=== PATIENT | female | born 1945 | race Caucasian/White ===

== ENCOUNTER → 2017-06-29 | Outpatient (CLI) | payer MEDICARE ==
[~2017-06-29] MED LIST: FENOGLIDE40 MG; HCTZ 25MG TAB25 MG; TOPROL XL 25MG25 MG
== END ==
LOC: MC.RAD 09:36
DX: Z12.31 Encounter for screening mammogram for malignant neoplasm of breast (principal)

== ENCOUNTER → 2018-07-17 | Outpatient (CLI) | payer MEDICARE | LOC: MC.RAD 09:29 | DX: Z12.31 Encounter for screening mammogram for malignant neoplasm of breast (principal) ==

== ENCOUNTER → 2019-08-22 | Outpatient (CLI) | payer MEDICARE | LOC: MC.RAD 09:37 | DX: Z12.31 Encounter for screening mammogram for malignant neoplasm of breast (principal) ==

== ENCOUNTER → 2020-08-25 | Outpatient (CLI) | payer MEDICARE | LOC: MC.RAD 09:25 | DX: Z12.31 Encounter for screening mammogram for malignant neoplasm of breast (principal) ==

== ENCOUNTER → 2021-10-05 | Outpatient (CLI) | payer MEDICARE | LOC: MC.RAD 08:45 | DX: Z12.31 Encounter for screening mammogram for malignant neoplasm of breast (principal) ==

== ENCOUNTER 2022-07-27 11:11 | Inpatient (IN) | payer MEDICARE ==
[~2022-07-27] VITALS: Ht 162.6 cm; Wt 53.8 kg
[2022-07-27] MEDS ORDERED: ZESTRIL 20MG TA20 MG PO (11:56)
[2022-07-27] MEDS ORDERED: PRINZIDE 25 MG-1 TAB PO ×2 (11:58)
[2022-07-27 12:00] VITALS: BP 205/86; PULSE 72
[2022-07-27] MEDS ORDERED: CALCIUM 600MG+D1 TAB PO (12:00)
--- NOTE | 2022-07-27 12:41 | NUR ---
PT ADMITTED TO MEDICAL UNIT. ADMISSION INTAKE AND ASSESSMENT COMPLETED. MED REC UPDATED. PT ORIENTED TO ROOM. CALL LIGHT WITHIN REACH. PT HAS ELEVATED B/P, PROVIDER CONTACTED, MEDICATIONS GIVEN PER eMAR. CONTINUING TO MONITOR.
[2022-07-27 13:02] LABS: BASO % 0.5 % (0.0-2.0); EOS # 0.1 K/mm3 (0.0-0.7); EOS % 1.6 % (0.0-4.0); GRAN # 2.3 K/mm3 (1.4-6.5); HEMATOCRIT 24.2 % (37.0-47.0); HEMOGLOBIN 8.1 g/dl (12.5-16.0); LYMPH # 1.5 K/mm3 (1.2-3.4); MEAN CELL VOLUME 101 fl (80.0-100.0); MEAN CORPUSCULAR HEMOGLOBIN 34 pg (27-31); MEAN CORPUSCULAR HGB CONC 34 g/dl (33.0-37.0); MEAN PLATELET VOLUME 10.9 fl (7.4-10.4); MONO # 0.4 K/mm3 (0.1-0.6); MONO % 8.7 % (1.7-9.3); PLATELET COUNT 237 K/mm3 (130-400); RED BLOOD COUNT 2.39 M/mm3 (4.10-5.30); REDCELL DISTRIBUTION WIDTH-CV 12.9 % (11.5-14.5)
[2022-07-27 13:12] LABS: PROTHROMBIN TIME 11.8 SECONDS (9.7-12.8)
[2022-07-27 13:15] LABS: PARTIAL THROMBOPLASTIN TIME 32.8 SECONDS (26.0-37.0)
[2022-07-27 13:16] VITALS: BP 172/76
[2022-07-27 13:22] LABS: ALBUMIN 4.3 gm/dL (3.4-4.8); BILIRUBIN,TOTAL 0.4 mg/dL (0.2-1.2); CALCIUM 10.6 mg/dL (8.4-10.2); CREATININE, serum 6.24 mg/dL (0.57-1.11); POTASSIUM 4.2 mmol/L (3.5-4.5); TOTAL PROTEIN 8.1 gm/dL (6.2-8.1)
[2022-07-27 13:25] LABS: ERYTHROCYTE SEDIMENTATION RATE 120 mm/hr (0-30)
[2022-07-27 13:32] LABS: MUCOUS Present (NOT PRESENT); SQUAMOUS EPITHELIAL None Seen /hpf (0-10); URINE BACTERIA None Seen /hpf (NONE SEEN); URINE RBC None Seen /hpf (0-2); URINE WBC 0-2 /hpf (0-2)
[2022-07-27 13:33] LABS: PH 5.5 (5.0-8.5); URINE APPEARANCE Clear (CLEAR/HAZY); URINE COLOR Yellow (YELLOW); URINE GLUCOSE Negative (NEGATIVE); URINE KETONE Negative (NEGATIVE); URINE NITRATE Negative (NEGATIVE); URINE PROTEIN(semi-quant) 1+ (NEGATIVE); URINE UROBILINOGEN 0.2 E.U/dL (0.2-1.0)
[2022-07-27 13:34] LABS: COLLECTION METHOD CLEAN CATCH; URINE BLOOD 1+ (NEGATIVE)
[2022-07-27 16:04] VITALS: BP 154/76; PULSE 53; TEMP 98.7
[2022-07-27 21:08] VITALS: BP 149/67; PULSE 61; TEMP 98.8
[2022-07-27 23:24] VITALS: BP 148/65; PULSE 73; TEMP 98.7
[2022-07-28] VITALS (32 sets, daily range): BP systolic 83–183; BP diastolic 41–84; PULSE 55–85; TEMP 98–98.9
--- NOTE | 2022-07-28 06:23 | NUR ---
pt up ad ijeoma in room, 24 hour urine collection in progress, NPO since midnight, prn hydralazine given @0120 for elevated BP, down to 126/58 @0400.
[2022-07-28 07:40] LABS: ALBUMIN 3.8 gm/dL (3.4-4.8); CREATININE, serum 6.18 mg/dL (0.57-1.11); PHOSPHOROUS 6.2 mg/dL (2.3-4.7); POTASSIUM 4.1 mmol/L (3.5-4.5)
--- NOTE | 2022-07-28 09:15 | NUR ---
Prior to administrating 0900 medications colaborated with primary nurse Hope RN and instructed to give medications.
[2022-07-28 10:15] LABS: BASO % 0.5 % (0.0-2.0); EOS # 0.1 K/mm3 (0.0-0.7); GRAN # 1.5 K/mm3 (1.4-6.5); GRAN % 39.6 % (42.2-75.2); LYMPH # 1.8 K/mm3 (1.2-3.4); LYMPH % 48.5 % (20.0-51.0); MEAN CELL VOLUME 105 fl (80.0-100.0); MEAN CORPUSCULAR HGB CONC 32 g/dl (33.0-37.0); MEAN PLATELET VOLUME 11.3 fl (7.4-10.4); MONO # 0.3 K/mm3 (0.1-0.6); MONO % 8.1 % (1.7-9.3); PLATELET COUNT 220 K/mm3 (130-400); RED BLOOD COUNT 2.26 M/mm3 (4.10-5.30)
[2022-07-28 10:19] LABS: HEMATOCRIT 23.8 % (37.0-47.0); HEMOGLOBIN 7.6 g/dl (12.5-16.0); MEAN CORPUSCULAR HEMOGLOBIN 34 pg (27-31)
--- NOTE | 2022-07-28 10:26 | NUR ---
Initial visit; Patient and thanked Motor Vehicle Inspector for looking in on her and introducing herself and offering God's blessings.
--- NOTE | 2022-07-28 11:50 | NUR ---
LATE ENTRY: PT WAS BROUGHT BACK TO ROOM 356. REPORT WAS GIVEN TO OLGA BAEZ. PT HAS NO PAIN OR DIFFICULTIES THAT SHE STATES WHEN QUESTONED ABOUT PAIN. CALL LIGHT IN REACH.
--- NOTE | 2022-07-28 13:49 | NUR ---
Primary nurse was assisted with [phone] patient care by [employer] [facility] student Marly De Paz and [facility] [facility] instructor Cynthia SANTA RN.
[2022-07-28 13:55] LABS: HEMATOCRIT 24.3 % (37.0-47.0); HEMOGLOBIN 8.1 g/dl (12.5-16.0)
--- NOTE | 2022-07-28 18:47 | NUR ---
PT ALERT AND ORIENTED WITH VITALS STABLE ON ROOM AIR. PT DENIES PAIN. PT SITTING UP IN BED EATING DINNER. CALL LIGHT WITHIN REACH. NO FURTHER NEEDS IDENTIFIED.
[2022-07-28 23:06] LABS: URINE HOURS (UPEP) 24 (())
[2022-07-29] VITALS (13 sets, daily range): BP systolic 111–179; BP diastolic 53–80; PULSE 58–68; TEMP 97.1–98.6
--- NOTE | 2022-07-29 05:00 | NUR ---
ASSESSMENT COMPLETE FOR WARDSPERSON. PT RESTING IN BED. PT DENIED GENERAL PAIN, CHEST PAIN, PALPITATIONS, N,V,D, SOB OR DIZZINESS. PT HAD A PRETTY UNEVENTFUL NIGHT. PT EXPRESSED NO ADDITIONAL NEEDS AT THIS TIME. CALL LIGHT WITHIN REACH.
[2022-07-29 06:56] LABS: ALBUMIN 3.6 gm/dL (3.4-4.8); CALCIUM 9.6 mg/dL (8.4-10.2); CREATININE, serum 6.4 mg/dL (0.57-1.11); PHOSPHOROUS 7.1 mg/dL (2.3-4.7); POTASSIUM 4.4 mmol/L (3.5-4.5)
[2022-07-29 08:46] LABS: BASO % 0.5 % (0.0-2.0); EOS # 0.1 K/mm3 (0.0-0.7); EOS % 2.8 % (0.0-4.0); GRAN # 2.1 K/mm3 (1.4-6.5); GRAN % 48.6 % (42.2-75.2); LYMPH # 1.7 K/mm3 (1.2-3.4); MEAN CELL VOLUME 102 fl (80.0-100.0); MEAN CORPUSCULAR HGB CONC 33 g/dl (33.0-37.0); MEAN PLATELET VOLUME 11.4 fl (7.4-10.4); MONO # 0.3 K/mm3 (0.1-0.6); MONO % 7.9 % (1.7-9.3); PLATELET COUNT 199 K/mm3 (130-400); RED BLOOD COUNT 2.08 M/mm3 (4.10-5.30); REDCELL DISTRIBUTION WIDTH-CV 12.9 % (11.5-14.5)
[2022-07-29 08:50] LABS: HEMATOCRIT 21.3 % (37.0-47.0); MEAN CORPUSCULAR HEMOGLOBIN 34 pg (27-31)
[2022-07-29 09:22] LABS: KAPPA FREE LIGHT CHAIN-SERUM 10908.28 mg/L (()); KAPPA LAMBDA RATIO 1368.67 ratio (()); LAMDA FREE LIGHT CHAIN SERUM 7.97 mg/L (())
--- NOTE | 2022-07-29 10:10 | NUR ---
Director Music met with patient to discuss discharge planning. Patient lives in [place] with her , Yifan (ph#[phone]) who is at bedside. Patient sees Dr. Arteaga for primary care and stated her preferred pharmacy is the cheapest one. Patient utilizes [facility] so she calls around to seek out the most affordable prices. Patient does not use any DME and is independent with ADLS. Patient stated she has DPOA-HC completed which designates her . Patient plans to return home at time of discharge. Discharge Plan: Home
--- NOTE | 2022-07-29 10:47 | NUR ---
PT CHATTING WITH FAMILY THIS AM. SHIFT ASSESSMENT PERFORMED, WNL. NO FURTHER NEEDS AT THIS TIME, CALL LIGHT WITHIN REACH.
--- NOTE | 2022-07-29 13:51 | NUR ---
Primary nurse was assisted with [phone] patient care by [employer] student Marly De Paz and [facility] instructor Cynthia SANTA RN.
[2022-07-29] MEDS ORDERED: APRESOLINE 25MG25 MG PO (14:29)
[2022-07-29] MEDS ORDERED: ZESTRIL 20MG TA20 MG PO (14:30)
[2022-07-29] MEDS ORDERED: RENVELA800 MG PO (14:31)
[2022-07-29 16:03] LABS: HEMATOCRIT 29.1 % (37.0-47.0)
[2022-07-29 16:04] LABS: HEMOGLOBIN 9.8 g/dl (12.5-16.0)
--- NOTE | 2022-07-29 17:00 | NUR ---
DISCHARGE INSTRUCTIONS GIVEN, FAMILY AT BEDSIDE, ALL QUESTIONS ANSWERED. IV REMOVED BY KATLYN GOMEZ. PT ESCORTED OFF OF UNIT BY [facility] STAFF.
[2022-07-30 15:20] LABS: URINE PROTEIN 24HR (UPEP) 2030 mg/24 h (<229)
[2022-08-01 15:16] LABS: A/G RATIO (PEP) 1.09 (())
== END 2022-07-29 17:38 | disposition home or self-care (01) | DRG 841 ==
LOC: MEDICAL 11:11
PROVIDERS: Registered Nurse; ADMIT Internal Medicine Nephrology
PROC: 0TB03ZX Excision of Right Kidney, Percutaneous Approach, Diagnostic (ICD-10-PCS; principal; 2022-07-28)
DX: C90.00 Multiple myeloma not having achieved remission (principal); N17.9 Acute kidney failure, unspecified; D64.9 Anemia, unspecified; E78.5 Hyperlipidemia, unspecified; Z96.652 Presence of left artificial knee joint; D72.819 Decreased white blood cell count, unspecified; I16.0 Hypertensive urgency; E83.52 Hypercalcemia; I12.9 Hypertensive chronic kidney disease with stage 1 through stage 4 chronic kidney disease, or unspecified chronic kidney disease; N18.9 Chronic kidney disease, unspecified; E83.39 Other disorders of phosphorus metabolism; E79.0 Hyperuricemia without signs of inflammatory arthritis and tophaceous disease; Z23 Encounter for immunization
CPT/HCPCS: J2597; J7040; P9016

== ENCOUNTER 2022-10-12 12:15 | Day surgery (SDC) | payer MEDICARE ==
[~2022-10-12] VITALS: Ht 162.6 cm; Wt 53.6 kg
[~2022-10-12 12:15] MED LIST changes: +APRESOLINE 25MG25 MG PO; +CALCIUM 600MG+D1 TAB PO; +LOFIBRA160 MG PO; +NEPHROCAP PO; +NORVASC2.5 MG PO; +PRINZIDE 25 MG-1 TAB PO; +RENVELA800 MG PO; +ZESTRIL 20MG TA20 MG PO; +ZOFRAN ODT4 MG PO; +ZOVIRAX 200MG200 MG PO; +ZYLOPRIM 100MG100 MG PO
[2022-10-12 13:12] VITALS: BP 183/85; PULSE 91; TEMP 97.8
[2022-10-12 13:13] LABS: MEAN CELL VOLUME 99 fl (80.0-100.0); MEAN CORPUSCULAR HGB CONC 32 g/dl (33.0-37.0); MEAN PLATELET VOLUME 11.3 fl (7.4-10.4); PLATELET COUNT 136 K/mm3 (130-400); RED BLOOD COUNT 2.87 M/mm3 (4.10-5.30); REDCELL DISTRIBUTION WIDTH-CV 18.6 % (11.5-14.5)
[2022-10-12 13:16] LABS: HEMATOCRIT 28.4 % (37.0-47.0); HEMOGLOBIN 9.2 g/dl (12.5-16.0); MEAN CORPUSCULAR HEMOGLOBIN 32 pg (27-31)
[2022-10-12 13:26] LABS: CALCIUM 9.3 mg/dL (8.4-10.2); CREATININE, serum 5.87 mg/dL (0.57-1.11); POTASSIUM 4.4 mmol/L (3.5-4.5)
[2022-10-12] MEDS ORDERED: NORCO 325 MG-51 TAB PO (16:30)
[2022-10-12 17:00] VITALS: BP 178/74; PULSE 55; TEMP 97.3
[2022-10-12 17:06] VITALS: TEMP 97.3
[2022-10-12 17:15] VITALS: BP 171/80; PULSE 88
--- NOTE | 2022-10-12 17:15 | NUR ---
1700-PT TO BAY 6 PER CART FROM PACU. DRESSING CLEAN,DRY AND INTACT. VS OBTAINED. CALL LIGHT WITHIN REACH. 1705-PT TOLERATING JUICE AND MUFFIN WITHOUT DIFFICULTY. DENIES ANY NEEDS AT THIS TIME. 1715-PT DENIES ANY PAIN AT THIS TIME. DENIES ANY NEEDS. WILL CONTINUE TO MONITOR.
[2022-10-12 17:30] VITALS: BP 174/75; PULSE 90
--- NOTE | 2022-10-12 17:33 | NUR ---
PT CONTINUES TO DENY ANY NEEDS. PT IS RESTING COMFORTABLY AT THIS TIME.
[2022-10-12 17:45] VITALS: BP 156/72; PULSE 67
--- NOTE | 2022-10-12 18:15 | NUR ---
1745 The patient ambulated to the bathroom with the stand by assistance of one nurs and appeared to tolerate the activity well. The patient voided without difficulty and voices a desire to be discharged home. The patient's IV to her right forearm was removed and a pressure dressing was applied to the site. The nurse instructed the patient to get dressed and notify staff when is ready to review her discharge paperwork. 1800 Discharge instructions were reviewed with the patient and her at this time. They both verbalized understanding and have no questions for the nurse at this time. 1805 The patient was escorted out via wheelchair to a private vehicle by NESTOR Lawler. The patient's belongings and discharge paperwork were sent with her. The patient's is present to drive her home.
[2023-03-14] MEDS ORDERED: DECADRON 4MG TAB4 MG PO (12:47)
[2023-03-14] MEDS ORDERED: VITAMIN B12 781 TAB PO (16:13)
[2023-03-14] MEDS ORDERED: NEPHRO VITAMIN0.8 MG PO (16:14)
[2023-03-16] MEDS ORDERED: ZOVIRAX 200MG200 MG PO (09:03)
[2023-03-16] MEDS ORDERED: PROTONIX 40MG T40 MG PO (09:04)
[2023-03-16] MEDS ORDERED: MIRTAZAPINE7.5 MG PO (09:04)
[2023-03-16] MEDS ORDERED: NATURE'S BLEND100 M2 PO (09:06)
== END 2022-10-12 18:05 | disposition home or self-care (01) ==
LOC: SDCO 12:15
PROVIDERS: Surgery
DX: N18.6 End stage renal disease (principal); C90.00 Multiple myeloma not having achieved remission
CPT/HCPCS: C1750; J0360; J0690; J2370; J2704; J2710; J3010; J7120

== ENCOUNTER 2022-12-31 23:57 | Inpatient (IN) | payer MEDICARE ==
[~2022-12-31] VITALS: Ht 160 cm; Wt 55.4 kg
[~2022-12-31 23:57] MED LIST changes: +NORCO 325 MG-51 TAB PO
[2023-01-01 01:03] LABS: MEAN CELL VOLUME 102 fl (80.0-100.0); MEAN CORPUSCULAR HGB CONC 36 g/dl (33.0-37.0); PLATELET COUNT 72 K/mm3 (130-400); RED BLOOD COUNT 2.62 M/mm3 (4.10-5.30); REDCELL DISTRIBUTION WIDTH-CV 17.9 % (11.5-14.5)
[2023-01-01 01:04] LABS: HEMATOCRIT 26.8 % (37.0-47.0); HEMOGLOBIN 9.7 g/dl (12.5-16.0); MEAN CORPUSCULAR HEMOGLOBIN 37 pg (27-31)
[2023-01-01 01:17] LABS: ALBUMIN 2.9 gm/dL (3.4-4.8); BILIRUBIN,TOTAL 0.8 mg/dL (0.2-1.2); CALCIUM 8.4 mg/dL (8.4-10.2); CREATININE, serum 10.69 mg/dL (0.57-1.11); TOTAL PROTEIN 5.6 gm/dL (6.2-8.1)
[2023-01-01 01:24] LABS: TROPONIN-I 0.429 ng/mL (0.00-0.033)
[2023-01-01 01:35] LABS: ANISOCYTOSIS 1+; BASOPHIL 4 % (0-2); LYMPHOCYTE 78 % (20.0-51.0); MYELOCYTE 2 % (0-0); NEUTROPHILS 4 % (42.0-75.2); NUCLEATED RED BLOOD CELL 1 (0-6); PLATELET ESTIMATE DECREASED (NORMAL)
[2023-01-01 01:36] LABS: SCHISTOCYTES 1+; TEAR DROP CELLS 2+
[2023-01-01] MEDS ORDERED: REVLIMID5 MG PO (04:12)
[2023-01-01] MEDS ORDERED: LASIX 20MG TABL20 MG (04:14)
[2023-01-01 04:23] VITALS: BP 108/59; PULSE 74; TEMP 98.4
--- NOTE | 2023-01-01 04:24 | NUR ---
THE PATIENT ARRIVED VIA CART ACCOMPANIED BY ED STAFF. THE PATIENT WAS ALERT AND ORIENTED AND APPROPRIATE. NO S/S OF DISTRESS NOTED. THE PATIENT WAS ORIENTED TO THE ROOM AND BED CONTROLS. CALL LIGHT WITHIN REACH. WILL MONITOR.
--- NOTE | 2023-01-01 05:17 | NUR ---
LAB CALLED WITH A TROPONIN VALUE OF 1.[address] GO CALLED AT [address] GO THIS SUPERVISOR ADULT EDUCATION WAS TO CONTACT DR. CAST. DR. CAST WAS CONTACTED AT 0508 AND A NEW ORDER WAS RECEIVED FOR A DAILY ASPRIN 325 MG TO START NOW. THE ORDER WAS PLACED.
--- NOTE | 2023-01-01 07:52 | NUR ---
Dr. Terrazas notified of this mornings elevated troponin level. No new orders rec'd.
[2023-01-01 08:55] VITALS: BP 106/59; PULSE 67; TEMP 97.8
--- NOTE | 2023-01-01 09:15 | NUR ---
Assessment complete. A/O x4. Denies cough, SOA or pain. Coordinating care with student nurseBulmaro.
--- NOTE | 2023-01-01 10:00 | NUR ---
Spoke with Flori Villasenor APRN and she is aware of K+ level.
[2023-01-01 13:04] LABS: PERITONEAL -POLYMORPHONUCLEAR 19.4 % (0-25)
[2023-01-01 13:15] VITALS: BP 117/68; PULSE 68; TEMP 97.9
--- NOTE | 2023-01-01 14:27 | NUR ---
RYANN charting reviewed, agree with documentation. Jacoby Claudio RN
[2023-01-01 16:17] VITALS: BP 114/47; PULSE 74; TEMP 98.1
--- NOTE | 2023-01-01 18:08 | NUR ---
Denies pain. Reports 1 episode of SOA when OOB for bathroom- without O2 in place. Provided patient with extension tubing so she can ambulate to the bathroom with O2 on. Peritoneal dialysis done by Flori Villasenor APRN twice today. will stay to finish exchange this evening. VSS.
[2023-01-01 19:34] VITALS: BP 100/53; PULSE 72; TEMP 98.4
[2023-01-01 23:25] VITALS: BP 95/49; PULSE 63; TEMP 97.9
[2023-01-02 04:47] VITALS: BP 98/47; PULSE 53; TEMP 98.4
[2023-01-02 06:22] LABS: EOS # 0.1 K/mm3 (0.0-0.7); EOS % 14.3 % (0.0-4.0); GRAN % 9.5 % (42.2-75.2); LYMPH # 0.3 K/mm3 (1.2-3.4); LYMPH % 59.5 % (20.0-51.0); MEAN CELL VOLUME 101 fl (80.0-100.0); MEAN CORPUSCULAR HGB CONC 35 g/dl (33.0-37.0); MONO # 0.1 K/mm3 (0.1-0.6); MONO % 14.3 % (1.7-9.3); PLATELET COUNT 58 K/mm3 (130-400); RED BLOOD COUNT 2.15 M/mm3 (4.10-5.30); REDCELL DISTRIBUTION WIDTH-CV 18.3 % (11.5-14.5)
[2023-01-02 06:41] LABS: ALBUMIN 2.2 gm/dL (3.4-4.8); CALCIUM 7.8 mg/dL (8.4-10.2); CREATININE, serum 10.44 mg/dL (0.57-1.11); PHOSPHOROUS 4.1 mg/dL (2.3-4.7)
[2023-01-02 06:43] LABS: HEMATOCRIT 21.8 % (37.0-47.0); HEMOGLOBIN 7.7 g/dl (12.5-16.0); MEAN CORPUSCULAR HEMOGLOBIN 36 pg (27-31)
[2023-01-02 06:49] LABS: POTASSIUM 2.6 mmol/L (3.5-4.5)
--- NOTE | 2023-01-02 07:00 | NUR ---
Assessment complete. Pt denies pain or needs at this time. Coordinating care with student nurseBulmaro.
--- NOTE | 2023-01-02 07:04 | NUR ---
Assessment complete. Reports productive cough of thick white sputum- reports cough drops helpful. O2 1L/NC. Denies SOA or pain. Reports two loose stools since yesterday evening.
--- NOTE | 2023-01-02 07:29 | NUR ---
LAB CALLED WITH CRITICAL VALUES FOR WBC 0.4, Hgb 7.7, POTASSIUM 2.6. FABIAN CADE APRN NOTIFIED OF THESE RESULTS AT 0701. NEW ORDERS RECEIVED.
[2023-01-02 07:53] VITALS: BP 119/54; PULSE 73; TEMP 98.1
[2023-01-02 07:54] LABS: BASOPHIL 2 % (0-2); EOSINOPHIL 10 % (0-4); LYMPHOCYTE 70 % (20.0-51.0); NEUTROPHILS 14 % (42.0-75.2); PLATELET ESTIMATE DECREASED (NORMAL)
[2023-01-02 07:55] LABS: ANISOCYTOSIS 1+
[2023-01-02 07:57] LABS: OVALOCYTES 1+; SCHISTOCYTES 1+
--- NOTE | 2023-01-02 09:40 | NUR ---
Pt incontinent of loose stool. Cares provided and pt showered, linens changed- all surfaces cleansed with clorox wipes. Stool specimen collected and sent to lab.
--- NOTE | 2023-01-02 10:16 | NUR ---
Jenn Norton RN notified of most recent EKG. No new orders rec'd.
--- NOTE | 2023-01-02 10:19 | NUR ---
Pt incontinent of stool. A sample was collected. Pt showered and bed linens were changed. Surfaces wiped down with bleach. Pt resting comfortably with call light and phone within reach. Coordinating care with nurse Santos.
--- NOTE | 2023-01-02 10:24 | NUR ---
EKG DONE; STATES "ACUTE [place]". NESTOR KLEIN NOTIFIED. SHE CALLED DR CAST'S RN BRIANNA.
[2023-01-02 12:19] VITALS: BP 114/68; PULSE 61; TEMP 98.1
--- NOTE | 2023-01-02 12:39 | NUR ---
Pt given anusol suppository for hemorrhoid per request; pt self-administered. Pt had another episode loose stool and given imodium per request. Pt currently eating lunch; at bedside. Coordinating care with nurse Santos.
--- NOTE | 2023-01-02 14:23 | NUR ---
RYANN charting reviewed, agree with documentation. NESTOR Banuelos Clinical Instructor.
--- NOTE | 2023-01-02 15:17 | NUR ---
Telehealth visit conducted with Dr. Ryan Forrest, Infectious Disease. Patient consented to visit. Landscape Nurseryman initiated without any difficulties during exam. All questions were answered by Dr. Forrest.
--- NOTE | 2023-01-02 15:46 | NUR ---
Dry Wall Installations Mechanic met with PAtient at bedside to conducr CAre Managment Assessment and discuss diacharge planning. Patient lives in [place], [place] with her , Yifan P: [phone]. Patient continues to be established with PCP Dr. Arteaga and is covered by [facility]. PAtient denies the use of DME, O2, and HH prior to admission and endorses independent ADL/IADLs. PAtient intends to discharge home once medically stable. Discharge Plan: Home
[2023-01-02 16:00] VITALS: BP 104/58; PULSE 61; TEMP 98.5
[2023-01-02 19:48] VITALS: BP 108/66; PULSE 100; TEMP 98
[2023-01-03] VITALS (7 sets, daily range): BP systolic 94–123; BP diastolic 44–80; PULSE 57–76; TEMP 97.7–98.8
--- NOTE | 2023-01-03 01:02 | NUR ---
PATIENT ASSESSED AND GIVEN NIGHTLY MEDICATIONS. AOX4 AND PLEASANT TO SPEAK WITH. STILL HAVING CHEST PAIN BUT MINIMAL AT THIS TIME, RATES IT A 3/10 FOR THE MOST PART. ON RA, BIPAP AT HOME, ON 2L. TROP- NEGATIVE. CREA- 1.32. PT/OT TO SEE PATIENT. CALL LIGHT IN REACH. BED IN LOWEST POSITION.
--- NOTE | 2023-01-03 01:08 | NUR ---
PATIENT ASSESSED AND GIVEN NIGHTLY MEDICATIONS. SHE IS AOX4 AND PLEASANT. ON NEUTROPENIC PRECAUTIONS. RECEIVED PD PRIOR TO BED FROM SPOUSE. GIVEN IMODIUM 1X. CURRENTLY ON 2L OF OXYGEN, RA AT BASELINE. CHANGED FROM VANCOMYCIN TO ROCEPHIN AND FLAGYL. BED IN LOWEST POSITION. CALL LIGHT IN REACH.
[2023-01-03 07:10] LABS: MEAN CELL VOLUME 103 fl (80.0-100.0); MEAN CORPUSCULAR HGB CONC 36 g/dl (33.0-37.0); PLATELET COUNT 68 K/mm3 (130-400); RED BLOOD COUNT 2.38 M/mm3 (4.10-5.30); REDCELL DISTRIBUTION WIDTH-CV 18.7 % (11.5-14.5)
[2023-01-03 07:16] LABS: HEMATOCRIT 24.5 % (37.0-47.0); HEMOGLOBIN 8.7 g/dl (12.5-16.0); MEAN CORPUSCULAR HEMOGLOBIN 37 pg (27-31)
[2023-01-03 07:28] LABS: ALBUMIN 2.3 gm/dL (3.4-4.8); CREATININE, serum 10.01 mg/dL (0.57-1.11); PHOSPHOROUS 4.4 mg/dL (2.3-4.7)
--- NOTE | 2023-01-03 07:45 | NUR ---
Assessment complete. O2 on 2L/nc - 99%. Breath sounds diminished at bilat bases. No SOA at rest. HR reg, Tele on. Abdomen soft, nondistended. Pertineal dyalsis port in placed/capped. Rt forearm INT intanct, no redness/swelling noted. Pt denies pain. Immodium given for loose stools. Neutropenic precautions inforced.
[2023-01-03 07:47] LABS: POTASSIUM 2.7 mmol/L (3.5-4.5)
[2023-01-03 08:24] LABS: BAND 2 % (0-10); BASOPHIL 2 % (0-2); LYMPHOCYTE 76 % (20.0-51.0); NEUTROPHILS 16 % (42.0-75.2); NUCLEATED RED BLOOD CELL 4 (0-6); PLATELET ESTIMATE DECREASED (NORMAL)
[2023-01-03 08:25] LABS: ANISOCYTOSIS 1+; OVALOCYTES 1+; POLYCHROMASIA 1+; SCHISTOCYTES 1+
--- NOTE | 2023-01-03 15:42 | NUR ---
Telehealth visit conducted with Dr. Ryan Forrest, Infectious Disease. Patient consented to visit. Dowel Sander Operator initiated without any difficulties during exam. All questions were answered by Dr. Forrest.
--- NOTE | 2023-01-03 16:46 | NUR ---
PT ON CHEMO PRECAUTIONS. REFUSED LEXISCAN. ECHO ORDERED FOR THE MORNING
[2023-01-04 04:22] VITALS: BP 93/48; PULSE 53; TEMP 97.6
--- NOTE | 2023-01-04 06:07 | NUR ---
01/03 2055-PT. REQUESTED ANOTHER DOSE OF IMODIUM, SHE STATED THAT THE DIARRHEA HAS BEEN SLOWING DOWN, BUT HAS NOT STOPPED COMPLETELY. SHE ASKED IF IT WAS POSSIBLY THE ANTIBIOTICS THAT COULD BE CAUSING IT, AND I INFORMED HER THAT YES, ANTIBIOTICS SOMETIMES DO CAUSE DIARRHEA. PT. STATED THAT SHE DIDN'T REMEMBER WHY SHE WAS ON ANTIBIOTICS, OR FOR HOW LONG SHE WOULD NEED THEM, I INFORMED HER THAT I WOULD CHECK WHY THEY HAD BEEN ORDERED. PT. DENIES ANY PAIN AT THIS TIME, STATED THAT SHE HAD AN HOUR TO WAIT TILL HER COULD FINISH DRAINING HER PERITONEAL DIALYSIS FLUID, THIS WAS THE LAST EXCHANGE FOR THE DAY. I HOOKED HER UP TO HER DOSE OF FLAGYL, AND INFORMED HER THAT IT WOULD ALSO TAKE AN HOUR TO INFUSE, AND FOR HER TO CALL ME ONCE THE PUMP STARTED BEEPING. PT. DENIED ANY FURTHER NEEDS AT THIS TIME, WILL CONTINUE TO MONITOR.
[2023-01-04 06:44] LABS: MEAN CELL VOLUME 103 fl (80.0-100.0); MEAN CORPUSCULAR HGB CONC 36 g/dl (33.0-37.0); MEAN PLATELET VOLUME 13.6 fl (7.4-10.4); PLATELET COUNT 64 K/mm3 (130-400); RED BLOOD COUNT 2.19 M/mm3 (4.10-5.30); REDCELL DISTRIBUTION WIDTH-CV 18.6 % (11.5-14.5)
[2023-01-04 06:48] LABS: HEMATOCRIT 22.5 % (37.0-47.0); MEAN CORPUSCULAR HEMOGLOBIN 37 pg (27-31)
[2023-01-04 06:56] LABS: ALBUMIN 2.1 gm/dL (3.4-4.8); CALCIUM 7.8 mg/dL (8.4-10.2); CREATININE, serum 9.54 mg/dL (0.57-1.11); PHOSPHOROUS 4.2 mg/dL (2.3-4.7)
[2023-01-04 07:36] LABS: BAND 6 % (0-10); BASOPHIL 4 % (0-2); EOSINOPHIL 2 % (0-4); LYMPHOCYTE 58 % (20.0-51.0); NEUTROPHILS 24 % (42.0-75.2); NUCLEATED RED BLOOD CELL 1 (0-6)
[2023-01-04 07:38] VITALS: BP 114/74; PULSE 67; TEMP 98.7
[2023-01-04 07:40] LABS: OVALOCYTES 1+; PLATELET ESTIMATE DECREASED (NORMAL)
--- NOTE | 2023-01-04 08:00 | NUR ---
Assessment complete. Breath sounds diminished at bilat bases. O2 sat 97% room air. No SOA at rest. HR reg. Tele on. Peritineal dialysis port in place, CDI. Rt forearm INT CDI. Denies pain. Neutropenic precations.
[2023-01-04 11:15] VITALS: BP 122/86; PULSE 58; TEMP 98.6
[2023-01-04] MEDS ORDERED: VTAMINC250TA PO (13:34)
[2023-01-04] MEDS ORDERED: B-12 500 MCG PO (13:34)
[2023-01-04] MEDS ORDERED: FOLIC ACID 11 MG/TA1 PO (13:34)
[2023-01-04] MEDS ORDERED: NATURE'S BLEND100 M2 PO (13:34)
[2023-01-04] MEDS ORDERED: COREG 3.123.125 MG/T PO (13:40)
[2023-01-04] MEDS ORDERED: CEFTIN500 MG PO (13:40)
[2023-01-04] MEDS ORDERED: ASPI325T6 PO (13:41)
== END 2023-01-04 15:35 | disposition home or self-care (01) | DRG 808 ==
LOC: COL.ER 23:57 → MEDICAL 01-01 03:26
PROVIDERS: Emergency Medicine; Nurse Practitioner; ADMIT Internal Medicine Nephrology
DX: D70.9 Neutropenia, unspecified (principal); I21.A1 Myocardial infarction type 2; N18.6 End stage renal disease; C90.00 Multiple myeloma not having achieved remission; I13.2 Hypertensive heart and chronic kidney disease with heart failure and with stage 5 chronic kidney disease, or end stage renal disease; E44.0 Moderate protein-calorie malnutrition; Z66 Do not resuscitate; D61.810 Antineoplastic chemotherapy induced pancytopenia; Z20.822 Contact with and (suspected) exposure to COVID-19; E87.70 Fluid overload, unspecified; I44.7 Left bundle-branch block, unspecified; I50.9 Heart failure, unspecified; D63.0 Anemia in neoplastic disease; K64.9 Unspecified hemorrhoids; T45.1X5A Adverse effect of antineoplastic and immunosuppressive drugs, initial encounter; R09.02 Hypoxemia; R50.81 Fever presenting with conditions classified elsewhere; I08.0 Rheumatic disorders of both mitral and aortic valves; Z99.2 Dependence on renal dialysis; Z90.49 Acquired absence of other specified parts of digestive tract; Z68.20 Body mass index [BMI] 20.0-20.9, adult; Z23 Encounter for immunization
CPT/HCPCS: J0696; J1447; J2543; J3370; J7030; J7050; Q9967